=== PATIENT | female | born 1975 | race Caucasian/White ===

== ENCOUNTER 2019-02-05 15:02 | Emergency (ER) | payer OTHER ==
[2019-02-05] MEDS ORDERED: Ketorolac 30 MG/ML SDV IM ONE (15:42)
[2019-02-05] MEDS ORDERED: diphenhydrAMINE 50 MG/ML SDV IM ONE (15:43)
[2019-02-05] MEDS ORDERED: Alum Hydrox/Mag Hydrox/Simeth 30 ML, Lidocaine 2% 15 ML PO ONE ×2 (15:43)
--- NOTE | 2019-02-05 15:50 | EDM.PDOC ---
ED HPI GENERAL MEDICAL PROBLEM - General Chief Complaint: Abdominal Pain Stated Complaint: HEARTBURN AND HEADACHE POSSIBLE ALLERGIC RX Time Seen by Provider: 02/05/19 15:15 Source of Information: Reports: Patient, RN Notes Reviewed History Limitations: Reports: No Limitations - History of Present Illness INITIAL COMMENTS - FREE TEXT/NARRATIVE: Patient is a 43-year-old female who presents to the ED today for the evaluation of heartburn and a headache. She notes that she was diagnosed with a urinary tract infection yesterday at [facility]. She was placed on Macrobid for this infection however she did take the first 2 doses, last night and this morning. She notes a previous allergic reaction to nitrofurantoin (macrobid) as this caused increased liver enzymes the last time. She notes that roughly at around 1:30 this morning she developed some severe heartburn and nausea and vomiting. The only new substance she took was this antibiotic for her UTI, the Macrobid. She notes a general feeling of being unwell at this time. She is having some mild epigastric pain and also suprapubic pain. She notes a mild headache as well from this. Epigastric Pain Score (Numeric/FACES): 8 - Related Data Allergies Allergy/AdvReac Type Severity Reaction Status Date / Time morphine Allergy Hallucinati Verified 02/05/19 15:09 ons nitrofurantoin Allergy decrease Verified 02/05/19 15:09 [From Macrobid] liver function Home Meds: Home Meds Docusate Sodium [Stool Softener] 1 tab PO TID 09/14/18 [History] Levothyroxine Sodium [Synthroid] 125 mg PO DAILY 09/14/18 [History] Lisinopril/Hydrochlorothiazide [Lisinopril-Hctz 20-25 mg Tab] 1 tab PO DAILY [History] amLODIPine Besylate [Amlodipine Besylate] 5 mg PO DAILY 09/14/18 [History] Ciprofloxacin [Ciprofloxacin HCl] 250 mg PO BID #10 tab 02/05/19 [Rx] Metoclopramide [Reglan] 5 mg PO TIDAC PRN #9 tab 02/05/19 [Rx] Past Medical History HEENT History: Reports: Other (See Below) Other HEENT History: wears glasses Cardiovascular History: Reports: Hypertension Respiratory History: Reports: Other (See Below) Other Respiratory History: childhood asthma Gastrointestinal History: Reports: Chronic Constipation, GERD Genitourinary History: Reports: None 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 [employer]EFITS CLAIMS T[employer]ER History: Reports: Musculoskeletal History: Reports: Fracture Other Musculoskeletal History: hx fx toes and arm Psychiatric History: Reports: Depression Endocrine/Metabolic History: Reports: Hypothyroidism, Obesity/BMI 30+ - Past Surgical History Head Surgeries/Procedures: Reports: None GI Surgical History: Reports: Appendectomy, Cholecystectomy Female Surgical History: Reports: Hysterectomy Musculoskeletal Surgical History: Reports: Arthroscopic Knee Social & Family History - Tobacco Use Smoking Status *Q: Never Smoker - Recreational Drug Use Recreational Drug Use: No ED ROS GENERAL - Review of Systems Review Of Systems: See Below Constitutional: Denies: Fever, Chills, Malaise, Weakness HEENT: Reports: No Symptoms Respiratory: Reports: No Symptoms Cardiovascular: Reports: No Symptoms Endocrine: Reports: No Symptoms GI/Abdominal: Reports: Abdominal Pain (epigastric), Nausea, Vomiting (4 episodes this AM). Denies: Constipation, Diarrhea : Reports: Dysuria, Pain (suprapubic), Urgency Musculoskeletal: Reports: No Symptoms Skin: Reports: No Symptoms Neurological: Reports: Headache Psychiatric: Reports: No Symptoms Hematologic/Lymphatic: Reports: No Symptoms Immunologic: Reports: No Symptoms ED EXAM, GI/ABD - Physical Exam Exam: See Below Exam Limited By: No Limitations General Appearance: Alert, WD/WN, No Apparent Distress Eyes: Bilateral: Normal Appearance, EOMI Ears: Normal External Exam Nose: Normal Inspection Throat/Mouth: Normal Inspection, Normal Lips, Normal Teeth, Normal Gums, Normal Oropharynx, Normal Voice, No Airway Compromise Head: Atraumatic, Normocephalic Neck: Normal Inspection Respiratory/Chest: No Respiratory Distress, Lungs Clear, Normal Breath Sounds, No Accessory Muscle Use, Chest Non-Tender Cardiovascular: Normal Peripheral Pulses, Regular Rate, Rhythm, No Murmur GI/Abdominal Exam: Normal Bowel Sounds, Soft, No Distention, No Mass, Tender ( epigastric and suprapubic) Extremities: Normal Inspection, Normal Capillary Refill Neurological: Alert, Oriented, Normal Cognition, Normal Gait, Normal Reflexes, No Motor/Sensory Deficits Psychiatric: Normal Affect, Normal Mood Skin Exam: Warm, Dry, Intact, Normal Color, No Rash Course - Vital Signs Last Recorded V/S: Last Vital Signs Temp 99.2 F 02/05/19 15:11 Pulse 73 02/05/19 15:11 Resp 16 02/05/19 15:11 BP 147/79 H 02/05/19 15:11 Pulse Ox 98 02/05/19 15:11 - Orders/Labs/Meds Meds: Medications Discontinued Medications Generic Name Dose Route Start Last Admin Trade Name Colleen PRN Reason Stop Dose Admin Al Hydroxide/Mg Hydroxide 30 0 ml 02/05/19 15:43 02/05/19 15:57 ml/ Lidocaine HCl 15 ml PO 02/05/19 15:44 45 ml ONETIME ONE Administration Dicyclomine HCl 10 mg 02/05/19 16:42 02/05/19 16:50 Bentyl PO 02/05/19 16:43 10 mg ONETIME ONE Administration Diphenhydramine HCl 25 mg 02/05/19 15:43 02/05/19 15:55 Benadryl IM 02/05/19 15:44 25 mg ONETIME ONE Administration Ketorolac Tromethamine 30 mg 02/05/19 15:42 02/05/19 15:56 Toradol IM 02/05/19 15:43 30 mg ONETIME ONE Administration Metoclopramide HCl 10 mg 02/05/19 16:43 02/05/19 16:50 Reglan IM 02/05/19 16:44 10 mg ONETIME ONE Administration - Re-Assessments/Exams Free Text/Narrative Re-Assessment/Exam: 02/05/19 15:52 Patient presents to the ED for the evaluation of a similar allergic reaction to the Macrobid. I have told her to stop taking this antibiotic. We'll switch her to Cipro 250 mg twice a day for 5 days, this will be sent to the [place] [facility] located in the [facility]. I did order a GI cocktail, 30 mg IM Toradol and 25 mg IM Benadryl for headache and allergic reaction type symptoms. 02/05/19 16:47 Patient was reassessed at bedside and states that her heartburn is not much better, however her headache has subsided. I did explain this to Dr. Meng and he states that Macrobid can be somewhat nauseating and suggested some nausea medication and Bentyl for further relief, I did order 10 mg IM Reglan and Bentyl to see if this doesn't further help. Departure - Departure Time of Disposition: 17:39 Disposition: Home, Self-Care 01 Condition: Fair Clinical Impression: Adverse reaction to drug Qualifiers: Encounter type: initial encounter Qualified Code(s): T50.905A - Adverse effect of unspecified drugs, medicaments and biological substances, initial encounter - Discharge Information *PRESCRIPTION DRUG MONITORING PROGRAM REVIEWED*: No *COPY OF PRESCRIPTION DRUG MONITORING REPORT IN PATIENT MANUELA: No Prescriptions: Ciprofloxacin [Ciprofloxacin HCl] 250 mg PO BID #10 tab Metoclopramide [Reglan] 5 mg PO TIDAC PRN #9 tab PRN Reason: Nausea Instructions: Drug Allergy, [id number] Referrals: PCP,Not In Area [Primary Care Provider] - Forms: ED Department Discharge Additional Instructions: You have been evaluated in the ED today for your heartburn and headache, this is likely caused to an adverse reaction to the Macrobid that you were prescribed for your UTI yesterday. Your antibiotics have been changed to ciprofloxacin 250 mg twice a day for 5 days, this was electronically sent to the [place] pharmacy located in the [facility] located near [facility]. You have been given medications in the ED today for your heartburn and headache and allergic type symptoms. Please return to the ED if your symptoms change or worsen.
[2019-02-05] MEDS ORDERED: Dicyclomine 10 MG Cap PO ONE (16:42)
[2019-02-05] MEDS ORDERED: Metoclopramide 10 MG/2 ML SDV IM ONE (16:43)
== END 2019-02-05 17:45 | disposition home or self-care (01) ==
LOC: JD.ED 15:02
DX: R12 Heartburn (principal); T37.8X5A Adverse effect of other specified systemic anti-infectives and antiparasitics, initial encounter; I10 Essential (primary) hypertension; K21.9 Gastro-esophageal reflux disease without esophagitis; E03.9 Hypothyroidism, unspecified; Z79.899 Other long term (current) drug therapy; Z88.5 Allergy status to narcotic agent; Z88.8 Allergy status to other drugs, medicaments and biological substances
CPT/HCPCS: 96372; 99283; A9270; J1200; J1885; J2765